=== PATIENT | male | born 1975 | race African-American/Black ===

== ENCOUNTER 2017-07-31 00:14 | Emergency (ER) | payer MEDICAID ==
[~2017-07-31] VITALS: Ht 121.9 cm; Wt 43.0 kg
[2017-07-31 00:25] VITALS: BP 121/73
== END 2017-07-31 02:30 | disposition left against medical advice (07) ==
LOC: ER 00:34
DX: R07.81 Pleurodynia (principal); Z53.21 Procedure and treatment not carried out due to patient leaving prior to being seen by health care provider